=== PATIENT | female | born 1990 | race Caucasian/White ===

== ENCOUNTER 2017-04-15 23:41 | Emergency (ER) | payer OTHER ==
[2017-04-16 00:30] LABS: HEMOGLOBIN 12.3 gm/dl (12.3-15.3); RED BLOOD COUNT 4.11 M/UL (4.00-5.10); WHITE BLOOD COUNT 10.5 K/UL (4.5-11.0)
[2017-04-16 00:51] LABS: BUN/CREATININE RATIO 16 (0-10)
== END 2017-04-16 03:04 | disposition home or self-care (01) ==
LOC: ER1 23:41
PROVIDERS: Emergency Medicine
DX: R51 Headache (principal); R55 Syncope and collapse; R53.1 Weakness
CPT/HCPCS: 36415; 70450; 71010; 80053; 81001; 82550; 82553; 82962; 83874; 84484; 84703; 85025; 85379; 87086; 96361; 96374; 96375; 99291; J1200; J1885; J2405; J2930